=== PATIENT | male | born 1940 | race Caucasian/White ===

== ENCOUNTER → 2020-12-10 | Day surgery (SDC) | payer OTHER ==
[~2020-12-10] VITALS: Ht 162.6 cm; Wt 95.3 kg
[~2020-12-10] MED LIST: BAYER CHEWABLE81 MG PO; FUROSEMIDE40 MG PO; HYDROCHLOROTH12.5 MG PO; JARDIANCE25 MG PO; LOVASTATIN40 MG PO; METFORMIN HCL500 MG PO; NORVASC10 MG PO; TAMSULOSIN HCL0.4 MG PO
== END | disposition home or self-care (01) ==
LOC: OR 10:50
DX: N40.1 Benign prostatic hyperplasia with lower urinary tract symptoms (principal); R39.14 Feeling of incomplete bladder emptying; I10 Essential (primary) hypertension; N47.1 Phimosis; F17.210 Nicotine dependence, cigarettes, uncomplicated; Z83.3 Family history of diabetes mellitus; Z83.6 Family history of other diseases of the respiratory system
CPT/HCPCS: J7040